=== PATIENT | male | born 1970 | race Caucasian/White ===

== ENCOUNTER 2017-01-20 06:21 | Day surgery (SDC) | payer MEDICAID, OTHER ==
[2017-01-20] MEDS ORDERED: DEXAMETHASONE 10 MG/ML VIAL IVP ONE (06:46)
[2017-01-20] MEDS ORDERED: OXYMETAZOLINE 30 ML NASAL SPRAY EACHNARE ONE (06:46)
[2017-01-20] MEDS ORDERED: ceFAZolin 2 GM/DEXTROSE 100 ML IV ONE (06:46)
[2017-01-20] MEDS ORDERED: LR 1,000 ML IV ONE (06:49)
[2017-01-20] MEDS ORDERED: LIDOCAINE 1% 2 ML INJ ID PRN (06:49)
[2017-01-20 07:02] VITALS: PULSE 69
--- NOTE | 2017-01-20 07:30 | PDANEPAE ---
ANE Past Medical History - Cardiovascular History Hx Hypertension: Yes Hx Coronary Artery / Peripheral Vascular Disease: Yes Cardiovascular History Comment: hx of PR, stent placement - Pulmonary History Hx Asthma/Reactive Airway Disease: Yes Hx Sleep Apnea: Yes ANE Patient History - Allergies Allergies/Adverse Reactions: No Known Allergies Allergy (Verified 01/14/17 11:17) - Home Medications Home Medications: Clopidogrel 75 mg 01/20/17 [Last Taken 01/06/17] Dulera 100 Mcg/5 Mcg Inhaler 100 mcg 01/20/17 [Last Taken 01/19/17 22:00] FENOFIBRATE 145 mg 01/20/17 [Last Taken 01/19/17 08:00] Metoprolol Succinate 25 mg 01/20/17 [Last Taken 01/19/17 22:00] Vascepa 1 gr 01/20/17 [Last Taken 01/06/17] - NPO status NPO Since - Liquids (Date): 01/20/17 NPO Since - Liquids (Time): 04:05 NPO Since - Solids (Date): 01/19/17 NPO Since - Solids (Time): 20:00 - Anes Hx Anes Hx: no prior problems - Smoking Hx Smoking Status: Former smoker - Alcohol Use Alcohol Use: Occasionally - Family Anes Hx Family Anes Hx: none ANE Labs/Vital Signs - Vital Signs Blood Pressure: 117/58 Heart Rate: 69 Respiratory Rate: 18 O2 Sat (%): 94 Height: 180.34 cm Weight: 80.286 kg ANE Physical Exam - Airway Mallampati Score: Class 1 Mouth exam: normal dental/mouth exam - Pulmonary Pulmonary: no respiratory distress - Cardiovascular Cardiovascular: regular rate and rhythym - ASA Status ASA Status: II ANE Anesthesia Plan Anesthesia Plan: general endotracheal anesthesia
--- NOTE | 2017-01-20 07:32 | PDHPUP ---
History & Physical Update H&P update statement: This history and physical update is based on an assessment of the patient which was completed after admission or registration (within 24 hours), but prior to the surgery/procedure. H&P update: no change in patient's condition since H&P completed (no change)
[2017-01-20] MEDS ORDERED: LIDO/EPI 1% **Not for Epidural 20 ML MDV ONE (07:38)
[2017-01-20] MEDS ORDERED: fentaNYL 100 MCG/2 ML INJ ONE (07:42)
[2017-01-20] MEDS ORDERED: MIDAZOLAM 2 MG/2 ML VIAL ONE (07:42)
[2017-01-20] MEDS ORDERED: PROPOFOL 200 MG/20 ML VIAL ONE (07:42)
[2017-01-20] MEDS ORDERED: METOCLOPRAMIDE 10 MG/2 ML VIAL ONE (07:45)
[2017-01-20] MEDS ORDERED: PETROLAT,WHT/MIN OIL/SOD CHL 3.5 GM OPHT.OINT ONE (07:45)
[2017-01-20] MEDS ORDERED: ONDANSETRON 4 MG/2 ML VIAL ONE (07:45)
[2017-01-20] MEDS ORDERED: ROCURONIUM 50 MG/5 ML VIAL ONE (07:45)
[2017-01-20] MEDS ORDERED: DEXAMETHASONE 4 MG/ML VIAL ONE ×2 (07:45)
[2017-01-20] MEDS ORDERED: SUGAMMADEX SODIUM 200 MG/2 ML VIAL IVP ONE (09:02)
--- NOTE | 2017-01-20 09:08 | POSTOPPROG ---
Post Op Note Date of Operation: 01/20/17 Surgeon: Kayla Pimentel Marking Devices Assembler: none Anesthesiologist: Iván Anesthesia: GET(General Endotracheal) Pre-op Diagnosis: CRS, turbinate hypertrophy Post-op Diagnosis: same Procedure: Fess, turbinoplasty Findings: diffuse polypoid change with polyps primarily around the middle turbinate Inf/Abcess present in the surg proc area at time of surgery?: No Depth: Superfical (Skin SQ) EBL: 50-100 Total fluids administered: 900 Complications: none Specimen(s): bilateral sinus contents R and L for permament
[2017-01-20] MEDS ORDERED: HYDROCODONE/APAP 5/325 TAB PO PRN (09:22)
[2017-01-20] MEDS ORDERED: ACETAMINOPHEN 500 MG TAB PO PRN (09:22)
[2017-01-20] MEDS ORDERED: LR 500 ML IV PRN (09:22)
[2017-01-20] MEDS ORDERED: NALOXONE HCL 0.4 MG/ML INJ IVP PRN (09:22)
[2017-01-20] MEDS ORDERED: PROMETHAZINE HCL 25 MG/ML INJ IVP PRN (09:22)
[2017-01-20] MEDS ORDERED: fentaNYL 100 MCG/2 ML INJ IVP PRN (09:22)
[2017-01-20] MEDS ORDERED: MEPERIDINE 25 MG/ML SYR IVP PRN (09:22)
--- NOTE | 2017-01-20 09:24 | POSTANESTH ---
Post Anesthetic Evaluation Cardiovascular Status: Normal, Stable Respiratory Status: Normal, Stable Level of Consciousness/Mental Status: Can Participate in Eval Pain Control: Adequate, Prn Tx Ordered Nausea/Vomiting Control: Adequate, Prn Tx Ordered Complications Possibly Related to Anesthesia: None Noted
[2017-01-20 10:12] VITALS: TEMP 97.9
[2017-01-20 10:13] VITALS: RESP 8
[2017-01-20] MEDS ORDERED: HYDROCODONE/APAP 5/325 TAB ONE (10:43)
[2017-01-20 11:04] VITALS: BP 109/78; O2SAT 96
--- NOTE | 2017-01-20 16:22 | GOP ---
[f rep st] OPERATIVE REPORT DATE OF OPERATION: 01/20/2017 SURGEON: Kayla Pimentel MD CHANGE MANAGEMENT MANAGER: None. ANESTHESIA: General endotracheal. PREOPERATIVE DIAGNOSIS: Chronic rhinosinusitis and turbinate hypertrophy. POSTOPERATIVE DIAGNOSIS: Chronic rhinosinusitis and turbinate hypertrophy. PROCEDURE PERFORMED: 1. Bilateral maxillary antrostomy with tissue removal. 2. Bilateral anterior ethmoidectomy. 3. Bilateral inferior turbinate reduction surgery. FINDINGS: 1. Very mildly anterior deviated nasal septum that did not impact surgery, therefore, no septoplast y performed. 2. Diffuse polypoid change, particularly within the ostiomeatal complex, middle turbinate, and infe rior turbinate posteriorly with isolated pedunculated polyps on both middle turbinates anterior head . SPECIMENS: Bilateral sinus contents in separate containers, right and left. ESTIMATED BLOOD LOSS: 50 cc. INDICATIONS: The patient is a 46-year-old male with a history of severe allergies, chronic rhinosin usitis, and nasal polyposis on physical exam. Attempts at controlling him medically either through topical steroids or intermittent oral burst steroids was insufficient and risks, benefits, and alter natives of the above procedure were discussed. It was decided to proceed forward. DESCRIPTION OF PROCEDURE: Patient was met in preoperative holding and informed consent was confirme d. The patient was brought to the operating room. He underwent induction of general anesthesia, pl acement of endotracheal tube without difficulty. He was rotated 90 degrees to the operating surgeon , positioned, prepped, and draped in the standard fashion. A time-out was performed. Afrin pledget s were placed in the nasal passageway and then removed after 5 minutes. A 0 degree rigid endoscope was used to examine each nasal passageway and anterior septal deflection was noted; however, this di d not impact access to the sinuses and therefore, no septoplasty was performed, in particular, this would have necessitated an open approach given the severe anterior deflection. Next, a total of 9 c c of 1% lidocaine, epinephrine was infiltrated throughout each middle turbinate and ostio meatal complex. Another Afrin-soaked pledget was placed on the right. I began on the left side. T he middle turbinate had diffuse polypoid change with isolated polyps on the anterior head. This was all debulked and removed with the microdebrider. Once the middle turbinate was skeletonized, the m ajority of the normal mucosa posteriorly was left intact and the remaining middle turbinate was then medialized with a Velpen elevator. The uncinate process was then bisected using a backbiting forcep s and the superior portion of the uncinate was removed with an angled upbiting Blakesley forceps. A large maxillary antrostomy was then created using both Herber-Cut forceps as well as the microdebrider . There were some polyps within the opening of the maxillary antrostomy that necessitated removal u sing the microdebrider as well. Anterior ethmoidectomy was then performed starting at the hiatus se milunaris superioris, working my way medially inferiorly to superolaterally to the level of the basa l lamella. The 0 degree rigid camera was then changed to a 30 degree and olive tip suction was used to examine the maxillary antrostomy. There were no additional polyps in the base of the sinus and the frontal recess was examined and the agger nasi was then removed using the upbiting forceps. Thao nging back to the 0 degree endoscope, I examined in the medial corridor to the middle turbinate. Th ere was some polypoid change medially as well that was removed using the microdebrider going up to b ut not involving the superior turbinate. Afrin pledgets were then placed in the operative site on t he left and I turned my attention to the right. Essentially, the same procedure was performed. The middle turbinate was debulked and skeletonized using the microdebrider of all polypoid change and p olyps. Again, the majority of the normal mucosa remained intact once this was performed. The middl e turbinate was then medialized additionally and the uncinate process was bisected using the backbit ing forceps superiorly. The uncinate process was removed using the up-biting Blakesley forceps and inferiorly, a large maxillary antrostomy was then performed using Herber-Cut forceps as well as the jasmine rodebrider. Again, there was additional polypoid change within the ostiomeatal complex and within t he opening of the maxillary os that necessitated removal of polyp tissue within the maxillary sinus itself. Next, anterior ethmoidectomy was performed starting at the hiatus semilunaris superioris, w orking my way medially inferior to superolaterally to the level of the basal lamella. The middle tu rbinate was then lateralized and the medial corridor was examined. There was additional polypoid ch teresa involving the posteromedial middle turbinates that was removed with the microdebrider going up to the level of the superior turbinate, but not involving it. The middle turbinate was then re-medi alized. At this point, additional lidocaine with epinephrine was placed into each head of each infe rior turbinate and stab incisions were made with a 15 blade scalpel. Turbinoplasty was then perform ed in the right inferior turbinate using the 2 mm microdebrider in a submucosal fashion. This was e xtended all the way to the posterior inferior turbinate where there was a mulberry tip change and th is was removed using a combination of the Blakesley forceps as well as the microdebrider. The infer ior turbinate was then lateralized using the Velpen elevator. This was essentially repeated on the l eft side. Again, a submucosal resection using a microdebrider through the inferior turbinate ____ stab incision was performed to the choana. There was again a mulberry polypoid change involvin g the posterior turbinate which was subsequently removed using both the microdebrider, as well as th e Blakesley forceps. At this point, the nose was suctioned free of any excess blood and Stammberger hemostatic dressing was applied into each middle meatus and the patient was then turned back to [facility] for wake up. At the end of this procedure, all sponge, instrument, and sharp counts were co rrect. I personally performed all portions of this case. FLUIDS: 900 cc of crystalloid. /[id number]/MODL
== END 2017-01-20 11:09 | disposition home or self-care (01) ==
LOC: FSGY 06:21
PROVIDERS: ATTEND Otolaryngology
PROC: 09TU4ZZ Resection of Right Ethmoid Sinus, Percutaneous Endoscopic Approach (ICD-10-PCS; principal; 2017-01-20 08:00)
PROC: 09TV4ZZ Resection of Left Ethmoid Sinus, Percutaneous Endoscopic Approach (ICD-10-PCS; principal; 2017-01-20 08:00)
PROC: 095L4ZZ Destruction of Nasal Turbinate, Percutaneous Endoscopic Approach (ICD-10-PCS; principal; 2017-01-20 08:00)
PROC: 09BQ4ZZ Excision of Right Maxillary Sinus, Percutaneous Endoscopic Approach (ICD-10-PCS; principal; 2017-01-20 08:00)
PROC: 09BR4ZZ Excision of Left Maxillary Sinus, Percutaneous Endoscopic Approach (ICD-10-PCS; principal; 2017-01-20 08:00)
DX: J32.8 Other chronic sinusitis (principal); J34.3 Hypertrophy of nasal turbinates; I25.10 Atherosclerotic heart disease of native coronary artery without angina pectoris; E78.5 Hyperlipidemia, unspecified; I25.2 Old myocardial infarction; Z95.5 Presence of coronary angioplasty implant and graft; Z87.891 Personal history of nicotine dependence
CPT/HCPCS: J0690; J1100; J2250; J2405; J2704; J2765; J3010